=== PATIENT | male | born 1955 | race Hispanic/Latino ===

== ENCOUNTER → 2022-01-12 | Outpatient (CLI) | payer MEDICARE ==
[~2022-01-12] MED LIST: REGADENOSON 0.4 MG/5 ML PF SYG IVP SCH
== END | disposition home or self-care (01) ==
LOC: SHCH 08:08
PROVIDERS: ATTEND Internal Medicine Cardiovascular Disease
DX: R94.31 Abnormal electrocardiogram [ECG] [EKG] (principal); R00.0 Tachycardia, unspecified; R07.9 Chest pain, unspecified
CPT/HCPCS: 78452; 96374; 93017; J2785; A9500 ×2

== ENCOUNTER 2024-05-27 11:58 | Emergency (ER) | payer MEDICARE ==
[~2024-05-27] VITALS: Ht 172.7 cm; Wt 104.3 kg
--- NOTE | 2024-05-27 12:20 | ERN ---
General Chief Complaint: Finger Injury Stated Complaint: RIGHT HAND THUMB LACERATION Time Seen by MD: 12:02 History of Present Illness Initial Comments 69-year-old male presents to the ED for evaluation of right thumb crush injury onset 20 minutes ago. Patient reports his thumb was crushed by a metal door, he also mentioned he does not remember the last time he had his tetanus shot. Allergies: Coded Allergies: No Known Allergies (Verified Allergy, Unknown, 01/11/22) ROS Dictation Constitutional: Negative for fever,chills, and weight loss Eyes: Negative for injury, pain,redness, and discharge ENT: Negative for injury,pain or swelling Cardiovascular: Negative for chest pain, palpitations, and edema Respiratory: Negative for shortness of breath, cough, and wheezing, Abdomen/GI: Negative for abdominal pain, nausea, vomiting, diarrhea, and constipation Back: Negative for injury and pain : Negative for injury, bleeding and discharge MS/Extremity: Right thumb injury Skin: Negative for rash, and discoloration Neuro: Negative for headache, weakness, numbness, tingling, and seizure Psych: Negative for suicide ideation, homicidal ideation, and hallucinations Physical Exam Physical Exam Dictation General: awake, alert, NAD Head/Face: Normocephalic, atraumatic Eyes: PERRL, EOMI, vision at baseline ENT: oral cavity clear, TMs clear, no signs of infection Neck: Trachea midline, supple, no nuchal rigidity Cardiovascular: RRR, normal S1/S2, No MRGs, no JVD Respiratory: CTAB, no respiratory distress, No rales or wheezes Abdomen: Soft, non-tender, non-distended, normal bowel sounds, no guarding or rebound. Skin: Warm, dry, normal turgor, no rash MS/Extremity: Pulses equal, no cyanosis, neurovascular intact, right distal thumb partial amputation, active bleeding Neuro: COAx4, GCS 15, strength 5/5, CN 2-12 intact, normal cerebellar exam, normal gait, Psych: Normal behavior, mood, and affect normal MDM MDM: Differential diagnosis: Finger injury, fracture, partial amputation 1514- Dr. Raman, consult 152- Dr. Madison consult accepts patient for admission 152- right finger partial amputation was approximated to the best of my abilities. Thoroughly discussed admission with patient regarding the risks of infection and complication, patient voiced understanding and all the questions were answered. Regardless patient decided he does not want to be admitted and wants to be discharged home. I reiterated the importance of staying and the risks of complications if patient leaves AMA. Previous outside records reviewed: Old ER visits. Need for hospitalization: Patient does meet criteria for hospitalization. Need for emergency major/minor surgery: No Patient's prior external medical records from other ER visits were reviewed by me as indicated. Prior testing and results from previous visits were reviewed. Prior tests were taken into account with medical decision making and resource utilization, independent historian/historians were used to obtain complete medical history. I independently interpreted the test that were performed, results were reviewed by me and considered findings on radiology if ordered. Medical management and examination interpretation discussions were had by me with other qualified healthcare professionals as indicated for the patient's care. ED Course Orders Procedure Category Date Status Time Finger(S) 2+Vws Rt RAD 05/27/24 Resulted 12:19 Cefazolin Sodium 1 Gm PHA 05/27/24 Complete Vial (Ancef 1 Gm V 12:19 Diph,Pertuss(Acell),Tet PHA 05/27/24 Complete Vac/Pf (Tdap) 12:30 Morphine 2mg Syg PHA 05/27/24 Complete (Morphine 2mg Syg) 12:30 Cefazolin Sodium PHA 05/27/24 Complete (Cefazolin Sodium 500 12:30 Tetanus,Diphtheria PHA 05/27/24 Complete Tox [Adult] (Diphther 12:30 Current Medications Medications (Trade) Dose Ordered Sig/Bridgette Route PRN Reason Start Time Stop Time Status Last Admin Dose Admin Cefazolin Sodium (ANCEF 1 gm vial) 1 gm ONCE STAT IVPB 05/27/24 12:19 05/27/24 12:20 DC 05/27/24 13:10 Cefazolin Sodium (ceFAZolin SODIUM 500 mg vial) 500 mg NOW IM 05/27/24 12:30 05/27/24 12:23 DC Diphtheria/ Tetanus/Acell Pertussis (Tdap) 0.5 ml ONCE ONCE IM 05/27/24 12:30 05/27/24 12:31 DC Morphine Sulfate (morPHINE 2MG SYG) 2 mg ONCE ONCE IM 05/27/24 12:30 05/27/24 12:31 DC 05/27/24 13:10 Tetanus/ Diphtheria Toxoids Adsorbed (DiphthERIA-teTANUS TOXOID [ADULT]/ DECAVAC) 0.5 ml ONCE ONCE IM 05/27/24 12:30 05/27/24 12:31 DC 05/27/24 13:12 Vital Signs Date Time Temp Pulse Resp B/P (MAP) Pulse Ox O2 Delivery O2 Flow Rate FiO2 05/27/24 13:21 98.1 70 16 135/80 98 Room Air* 0 21 05/27/24 12:15 98.1 73 20 138/82 98 Room Air 0 Laceration/Wound Repair Laceration/Wound Repair : Wound Location: upper extremity (Right thumb partial amputation) Wound Length (cm): 4 Wound's Depth, Shape: into muscle Wound Explored: clean Irrigated w/ Saline (ccs): 100 Anesthesia: 1% Lidocaine (Digital block 8 mLs) Wound Repaired With: sutures Suture Size/Type: 4:0 Number of Sutures: 12 Layer Closure?: Yes (Finger was approximated) Critical Care Note Critical Time: other (Total critical care time was 33 minutes. Excluding time for procedures. Management of critically ill patient with concern for acute decompensation. Management included interpretation of laboratory values and imaging, hemodynamics, time for consultation with consultants and admitting physician.) DX & DISP Disposition: AMA Departure Impression: Primary Impression: Partial traumatic amputation of right finger Condition: Against Medical Advice Scripts Cephalexin Monohydrate (Keflex) 500 Mg Cap 1 CAP PO QID for 10 Days, #40 CAP 0 Refills Prov: ANDRADE CANNON MD 05/27/24 Referrals: NATALIA GUTIERRES MD (PCP) JULIO RAMAN MD I have reviewed, & agreed with my scribe's, documentation. (Entered by Ibrahima Lui, acting as a scribe for Dr. Cannon) I personally scribed for ANDRADE CANNON MD (MICHELLE) on 05/27/24 at 12:20. Electronically submitted by Ibrahima Lui ([email or web address]). I personally scribed for ANDRADE CANNON MD (MICHELLE) on 05/27/24 at 14:05. Electronically submitted by Ibrahima Lui ([employer]). I personally scribed for ANDRADE CANNON MD (MICHELLE) on 05/27/24 at 15:18. Electronically submitted by Ibrahima Lui ([employer]). I personally scribed for ANDRADE CANNON MD (MICHELLE) on 05/27/24 at 15:24. Electronically submitted by Ibrahima Lui ([employer]). I personally scribed for ANDRADE CANNON MD (MICHELLE) on 05/27/24 at 15:36. Electronically submitted by Ibrahima Lui ([employer]). ANDRADE CANNON MD May 27, 2024 12:20
[2024-05-27] MEDS: DIPH,PERTUSS(ACELL),TET VAC/PF 0.5 ML VIAL IM ONE (12:30)
[2024-05-27] MEDS: ceFAZolin SODIUM 1 GM VIAL IVPB STA (13:10)
[2024-05-27] MEDS: morPHINE 2 MG SYG IM ONE (13:10)
[2024-05-27] MEDS: teTANUS/diphthERIA TOXOID [ADULT] 0.5 ML VIAL IM ONE (13:12)
--- NOTE | 2024-05-27 13:37 | HMCIMG ---
FINGER(S) 2+VWS RT HISTORY: Thumb injury COMPARISON: None TECHNIQUE: 3 images of right thumb were obtained. FINDINGS: Fracture displacement is seen of the mid aspect of the first distal phalanx. Soft tissue swelling seen. No dislocation is seen. Degenerative changes are seen. IMPRESSION: 1. Findings as described above.
[2024-05-27] MEDS ORDERED: CEPH500B PO (15:37)
[2024-05-27 15:38] VITALS: BP 140/85; PULSE 71; RESP 18; TEMP 98.3; O2SAT 98
== END 2024-05-27 15:52 | disposition left against medical advice (07) ==
LOC: EDH 11:58
DX: S61.011A Laceration without foreign body of right thumb without damage to nail, initial encounter (principal); W23.0XXA Caught, crushed, jammed, or pinched between moving objects, initial encounter; Y93.89 Activity, other specified; Y92.89 Other specified places as the place of occurrence of the external cause; Y99.8 Other external cause status
CPT/HCPCS: 99284; 96365; 96366; 90714; 73140; 90471; 12002; 96372; J0690; J2270; 90715